=== PATIENT | female | born 1945 | race Caucasian/White ===

== ENCOUNTER 2018-11-05 12:23 | Day surgery (SDC) | payer MEDICARE ==
[2018-11-05] MEDS ORDERED: Depo-Medrol 40 MG/ML IM ONE (12:24)
[2018-11-05] MEDS ORDERED: Ketamine HCl 50 MG/ML IV ONE (12:24)
[2018-11-05] MEDS ORDERED: Marcaine 0.5% SDV 10 ML IJ ONE (12:24)
[2018-11-05] MEDS ORDERED: DIPRIVAN 200 MG/20 ML IV ONE (12:24)
[2018-11-05] MEDS ORDERED: Lactated Ringers 1,000 ML IV ONE (15:41)
--- NOTE | 2018-11-05 16:17 | XRAY ---
Indication: Right knee injection. Intraoperative fluoroscopy was provided for 5 seconds. Single digital spot image submitted for interpretation demonstrates needle tip projecting over the right femur intercondylar notch. Small amount of contrast injected for needle tip placement. Correlate with intraoperative findings/report.
--- NOTE | 2018-11-05 16:19 | XRAY ---
5 seconds fluoroscopy time in surgery for right knee injection.
== END 2018-11-05 14:47 | disposition home or self-care (01) ==
LOC: SDC-PAIN 12:23
PROVIDERS: ATTEND Psychiatry & Neurology Pain Medicine
DX: M17.11 Unilateral primary osteoarthritis, right knee (principal); Z79.899 Other long term (current) drug therapy; I10 Essential (primary) hypertension; E03.9 Hypothyroidism, unspecified; M79.7 Fibromyalgia; I51.9 Heart disease, unspecified; M06.9 Rheumatoid arthritis, unspecified
CPT/HCPCS: 20610; 73560; 77002; J1030; J2704; Q9966

== ENCOUNTER 2018-12-10 11:04 | Day surgery (SDC) | payer MEDICARE ==
[2018-12-10] MEDS ORDERED: Depo-Medrol 40 MG/ML IM ONE (11:05)
[2018-12-10] MEDS ORDERED: Marcaine 0.5% SDV 10 ML IJ ONE (11:05)
[2018-12-10] MEDS ORDERED: DIPRIVAN 200 MG/20 ML IV ONE (11:05)
[2018-12-10] MEDS ORDERED: Lactated Ringers 1,000 ML IV ONE (13:05)
--- NOTE | 2018-12-10 13:37 | XRAY ---
Indication: Right hip injection. Intraoperative fluoroscopy was provided for 22 seconds. Single digital spot image submitted for interpretation demonstrates needle tip projecting just lateral to the right acetabulum prosthesis. Small amount of contrast injected for needle tip placement. Correlate with intraoperative findings/report.
--- NOTE | 2018-12-10 13:42 | XRAY ---
22 seconds fluoroscopy time in surgery for right hip injection.
== END 2018-12-10 12:30 | disposition home or self-care (01) ==
LOC: SDC-PAIN 11:04
PROVIDERS: ATTEND Psychiatry & Neurology Pain Medicine
DX: M16.11 Unilateral primary osteoarthritis, right hip (principal); I10 Essential (primary) hypertension; E03.9 Hypothyroidism, unspecified; M06.9 Rheumatoid arthritis, unspecified; I51.9 Heart disease, unspecified; Z79.899 Other long term (current) drug therapy
CPT/HCPCS: 20610; 73501; 77002; J1030; J2704; Q9966

== ENCOUNTER 2024-09-30 12:24 | Day surgery (SDC) | payer MEDICARE ==
[2024-09-30] MEDS ORDERED: Depo-Medrol 40 MG/ML IM ONE (12:25)
[2024-09-30] MEDS ORDERED: BUPIVACAINE 0.5% VIAL IJ ONE (12:25)
[2024-09-30] MEDS ORDERED: Sodium Chloride 0.9(Preservative Free) 10 ML IJ ONE (12:25)
[2024-09-30] MEDS ORDERED: dexAMETHasone sodium phosphate IJ ONE (12:25)
[2024-09-30] MEDS ORDERED: propofoL IV ONE (14:28)
--- NOTE | 2024-09-30 16:32 | XRAY ---
Indication: Caudal CORTEZ. Intraoperative fluoroscopy provided for 9 seconds. 3 digital spot image submitted for interpretation demonstrates caudal needle tip projecting mid sacrum. Small amount of contrast injected for needle tip placement. Correlate with intraoperative findings/report.
--- NOTE | 2024-09-30 17:07 | XRAY ---
9 seconds of fluoroscopy was used in surgery for a caudal CORTEZ.
== END 2024-09-30 15:05 | disposition home or self-care (01) ==
LOC: SDC-PAIN 12:24
PROVIDERS: ATTEND Psychiatry & Neurology Pain Medicine
DX: M54.16 Radiculopathy, lumbar region (principal)
CPT/HCPCS: 62323; 72220; 77003; J1100; J2704; Q9966